=== PATIENT | female | born 1955 | race African-American/Black ===

== ENCOUNTER 2018-07-31 07:11 | Observation (INO) | payer MEDICARE ==
[2018-07-30 09:35] LABS: BASOPHILS % 0.4 % (0.0-1.0); EOSINOPHILS # (AUTO) 0.2 (0.0-0.4); EOSINOPHILS % 1.8 % (0.0-6.0); HEMATOCRIT 37.8 % (34.2-44.1); HEMOGLOBIN 12.5 g/dL (12.0-16.0); LYMPHOCYTES # (AUTO) 3.3 (1.0-3.2); MEAN CORPUSCULAR HEMOGLOBIN 29.5 pg (28-32); MEAN CORPUSCULAR HGB CONC 33.1 g/dL (31-35); MEAN CORPUSCULAR VOLUME 89.2 fL (81-99); MONOCYTES # (AUTO) 0.6 (0.2-0.8); NEUTROPHILS # (AUTO) 6.2 (2.1-6.9); NEUTROPHILS % 59.5 % (38.7-80.0); PLATELET COUNT 287 x10e3/uL (140-360); RED BLOOD COUNT 4.24 x10e6/uL (3.6-5.1); RED CELL DISTRIBUTION WIDTH 12.6 % (11.7-14.4)
[~2018-07-31] VITALS: Ht 162.6 cm; Wt 97.1 kg
[~2018-07-31 07:11] MED LIST: ALBUTEROL0.63 MG/3 NEB; AMLODIPINE BESY10 MG PO; ATENOLOL50 MG PO; CLONIDINE HCL0.3 MG PO; LEVOTHYROXINE150 MCG PO; METOPROLOL SUCC25 MG PO; VASOTEC10 MG PO
[2018-07-31] MEDS ORDERED: ROPIVACAINE 246.25 MG, EPINEPHRINE HCL 1:1000 1ML 0.5 MG, CLONIDINE HCL 0.08 MG, KETORO... INJ ONE ×5 (07:30)
[2018-07-31] MEDS ORDERED: CELECOXIB 200 MG CAP ONE ×2 (08:01→08:05)
[2018-07-31] MEDS ORDERED: CEFAZOLIN SOD 2 GM/D5W 50ML 50 ML IV ONE (08:02)
[2018-07-31] MEDS ORDERED: GABAPENTIN 300 MG CAP ONE (08:02)
[2018-07-31] MEDS ORDERED: DEXAMETHASONE SOD PHOS 10 MG/1 ML VIAL ONE (08:02)
[2018-07-31] MEDS ORDERED: ALBUTEROL SULF 0.083% NEB SOLN 3 ML NEB ONE (08:11)
[2018-07-31] MEDS ORDERED: SODIUM CHLORIDE 0.9% 500ML 500 ML ONE (08:39)
[2018-07-31] MEDS ORDERED: VANCOMYCIN HCL 1,000 MG ONE (08:39)
[2018-07-31] MEDS ORDERED: TRANEXAMIC ACID 1,000 MG/10 ML ML ONE (08:40)
[2018-07-31] MEDS ORDERED: BACITRACIN 50,000 UNIT VIAL ONE (08:40)
[2018-07-31] MEDS ORDERED: PROMETHAZINE HCL (IM) 25 MG/ML VIAL INJ PRN (11:15)
[2018-07-31] MEDS ORDERED: KETOROLAC TROMETHAMINE 30 MG/ML VIAL IV PRN ×2 (11:15→16:30)
[2018-07-31] MEDS ORDERED: ONDANSETRON HCL INJ 2MG/ML 2ML 2 MG/ML VIAL IV PRN (11:15)
[2018-07-31] MEDS ORDERED: ACETAMINOPHEN 650 MG SUPP PR PRN (11:15)
[2018-07-31] MEDS ORDERED: DIPHENHYDRAMINE HCL INJ 50 MG/ML VIAL IM/IV PRN (11:15)
[2018-07-31] MEDS ORDERED: ZOLPIDEM TARTRATE 5 MG TAB PO PRN (11:15)
[2018-07-31] MEDS ORDERED: DOCUSATE SODIUM 100 MG CAP PO PRN (11:15)
[2018-07-31] MEDS ORDERED: HYDROCODONE/APAP 5MG-325MG TAB PO PRN (11:15)
[2018-07-31] MEDS ORDERED: MEPERIDINE HCL INJ 25 MG/ML VIAL ONE (11:23)
[2018-07-31] MEDS ORDERED: FENTANYL CITRATE/PF 100MCG/2 ML INJ ONE ×2 (11:56→19:35)
--- NOTE | 2018-07-31 12:18 | Diagnostic Imaging Report ---
Exam: Left knee 2 views History: Postoperative Comparison: None. Findings: See impression Impression: Post surgical changes of total left knee replacement with intact surgical hardware. No periprosthetic displaced fracture. Expected subcutaneous gas and skin patricia. Signed by: Dr. Rafy Horton M.D. on 07/31/2018 12:15 PM
--- OUTSIDE RECORDS SUMMARY | 2018-07-31 12:55 | XMS REPORT ---
Author [facility] Address Unknown Phone Unavailable Care Team Providers Care Numberer And Wirer Name Role Phone BENJAMIN NAVARRO Unavailable Unavailable Problems This patient has no known problems. Allergies, Adverse Reactions, Alerts This patient has no known allergies or adverse reactions. Medications This patient has no known medications. Results Test Description Test Time Test Comments Text Results Atomic Results Result Comments KNEE LEFT 1-2 VIEWS 2018-07-31 12:14:00 [place] [id number] Patient Name: AKANKSHA CHOW MR #: [id number] : 1955 Age/Sex: 62/F Req #: [id number] [facility] Physician: Ordered by: BENJAMIN NAVARRO MD Report #: [id number] Location: OR Room/Bed: Procedure: [id number] DX/KNEE LEFT 1-2 VIEWS Exam Date: 07/31/18 Exam Time: 1200 REPORT STATUS: Signed Exam: Left knee 2 views History: Postoperativ e Comparison: None. Findings: See impression Impression: Post surgical changes of total left knee replacement with intact surgical hardware. No periprosthetic displaced fracture. Expected subcutaneous gas and skin patricia. Signed by: Dr. Benjamin Martinez M.D. on 07/31/2018 12:15 PM Dictated By: BENJAMIN MARTINEZ MD 1215 Transcribed By: BRIAN on 07/31/18 1215 COPY TO: BENJAMIN NAVARRO MD
[2018-07-31] MEDS ORDERED: CEFAZOLIN SOD 1 GM/NS 50ML 50 ML IV SCH (14:00)
[2018-07-31 16:55] VITALS: BP 144/70
[2018-07-31] MEDS ORDERED: SEVOFLURANE INHAL SOLN 250 ML PEN BTL ONE (17:58)
[2018-07-31] MEDS ORDERED: ONDANSETRON HCL INJ 2MG/ML 2ML 2 MG/ML VIAL ONE (17:58)
[2018-07-31] MEDS ORDERED: LIDOCAINE HCL 2% LOCAL INJ 5 ML SDV VIAL INJ ONE (17:58)
[2018-07-31] MEDS ORDERED: PROPOFOL IV EMULSION 10 MG/ML 20 ML VIAL ONE (17:58)
[2018-07-31] MEDS ORDERED: DEXAMETHASONE SOD PHOS INJ 4 MG/ML VIAL ONE (17:58)
[2018-07-31] MEDS ORDERED: LIDOCAINE HCL 2% LOCAL 20 ML VIAL ONE (18:33)
[2018-07-31] MEDS ORDERED: ROPIVACAINE 0.5% 5 MG/ML 30 ML SDV ONE (18:33)
[2018-07-31] MEDS: CEFAZOLIN SOD 1 GM/NS 50ML 50 ML IV SCH (18:47)
[2018-07-31] MEDS: ACETAMINOPHEN 1000 MG/100 ML IV SCH ×2 (18:47→18:48)
[2018-07-31] MEDS: CELECOXIB 100 MG CAP PO SCH (18:47)
[2018-07-31] MEDS: ASPIRIN 325 MG TAB PO SCH (18:47)
[2018-07-31] MEDS ORDERED: MIDAZOLAM HCL 2 MG/2 ML VIAL ONE (19:35)
[2018-07-31 20:00] VITALS: BP 140/83
[2018-07-31 20:54] VITALS: BP 140/83
[2018-07-31] MEDS ORDERED: METOPROLOL SUCC50 MG PO (21:07)
[2018-07-31] MEDS ORDERED: METOPROLOL SUCCINATE 50 MG TAB XL PO SCH (21:15)
[2018-07-31] MEDS ORDERED: ENALAPRIL MALEATE 10 MG TAB PO SCH (21:15)
[2018-07-31] MEDS ORDERED: ALBUTEROL SULF 0.083% NEB SOLN 3 ML NEB NEB SCH (21:15)
[2018-07-31] MEDS: SODIUM CHLORIDE 0.9% 1000ML 1,000 ML IV SCH (21:31)
[2018-07-31] MEDS: AMLODIPINE BESYLATE 10 MG TAB PO SCH (21:50)
[2018-07-31] MEDS: CLONIDINE HCL 0.3 MG TAB PO SCH (21:50)
[2018-07-31] MEDS: HYDROCODONE/APAP 7.5MG-325MG 1 EA TAB PO PRN (21:51)
[2018-08-01] VITALS: BP 110/55
[2018-08-01] MEDS: CEFAZOLIN SOD 1 GM/NS 50ML 50 ML IV SCH ×2 (00:49→09:38)
[2018-08-01 04:00] VITALS: BP 145/67
[2018-08-01] MEDS: HYDROCODONE/APAP 7.5MG-325MG 1 EA TAB PO PRN ×2 (04:50→13:55)
[2018-08-01 05:56] LABS: HEMOGLOBIN 10.3 g/dL (12.0-16.0)
[2018-08-01] MEDS ORDERED: LEVOTHYROXINE SODIUM 100 MCG TAB PO SCH (06:00)
[2018-08-01] MEDS: ACETAMINOPHEN 1000 MG/100 ML IV SCH ×2 (07:10)
[2018-08-01] MEDS: CLONIDINE HCL 0.3 MG TAB PO SCH (07:40)
[2018-08-01 08:57] VITALS: BP 175/76
[2018-08-01] MEDS ORDERED: ATENOLOL 50 MG TAB PO SCH (09:00)
[2018-08-01] MEDS ORDERED: ENALAPRIL MALEATE 10 MG TAB PO SCH (09:00)
[2018-08-01] MEDS: CELECOXIB 100 MG CAP PO SCH (09:38)
[2018-08-01] MEDS: AMLODIPINE BESYLATE 10 MG TAB PO SCH (09:38)
[2018-08-01] MEDS: ASPIRIN 325 MG TAB PO SCH (09:38)
--- NOTE | 2018-08-01 11:13 | Consultation ---
DATE OF CONSULTATION: PRIMARY CARE PHYSICIAN: Dr. Ángel Dill. CHIEF COMPLAINT: Status post left knee replacement on July 31, 2018. HISTORY OF PRESENT ILLNESS: The patient is a pleasant 62-year-old female status post left knee replacement. The patient is otherwise stable. No chest pain, no shortness of breath. No abdominal pain. The patient is receiving physical therapy. PAST MEDICAL HISTORY: Obesity, diabetes type 2, chronic asthma stable, hypertension, diabetic neuropathy, osteoarthritis, and hypothyroidism. PAST SURGICAL HISTORY: Weight loss surgery in 2017. Left knee replacement. SOCIAL HISTORY: The patient does not smoke or use alcohol. No recreational drug use. ALLERGIES: TO MORPHINE. HOME MEDICATIONS: List reviewed. REVIEW OF SYSTEMS: Left knee appropriate pain postop. PHYSICAL EXAMINATION: VITAL SIGNS: Temperature is 98, blood pressure 145/67, pulse rate is 64, respirations 18. GENERAL: The patient is not in acute distress. She is awake. HEENT: Normocephalic, atraumatic. Anicteric. NECK: Supple grossly. PULMONARY: Clear to auscultation bilaterally. CARDIOVASCULAR: S1, S2. Regular rate and rhythm. ABDOMEN: Soft, obese. Positive bowel sounds. Nontender, nondistention. EXTREMITIES: No gross cyanosis or edema. Status post left knee replacement. NEUROLOGIC: No focal deficit. LABORATORY DATA: The hemoglobin and hematocrit are 10.3 and 32. IMPRESSION: 1. Status post left knee replacement, stable. No complication. 2. Multiple chronic baseline problems, diabetes type 2, hypertension, obesity, dyslipidemia, hypothyroidism. PLAN: Continue with postop care. Discontinue IV fluids. Resume home medication. Pain control. MD EFRAÍN Dennison/CORKY /[id number]
[2018-08-01] MEDS ORDERED: ACETAMINOPHEN 1000 MG/100 ML IV PRN (11:15)
[2018-08-01 13:28] VITALS: BP 147/65
[2018-08-01 17:07] VITALS: BP 115/69
--- NOTE | 2018-08-02 20:34 | Operative Report ---
DATE OF PROCEDURE: 07/31/2018 SURGEON: Rafy Roque MD TRANSPORTATION SUPERINTENDENT: Ravin Ballard PREOPERATIVE DIAGNOSIS: Osteoarthritis, left knee. POSTOPERATIVE DIAGNOSIS: Osteoarthritis, left knee. PROCEDURE: Left total knee arthroplasty. INDICATIONS: The patient is a 62-year-old lady, who has end-stage arthritis of her left knee. She has failed conservative management and would like to proceed with a left total knee replacement. She previously had bariatric surgery and lost a reported 140 pounds. She remains markedly deconditioned. She understands the plan of care and wishes to proceed. PROCEDURE IN DETAIL: The patient was brought to the operating room and placed under general anesthetic. She received a regional block, tranexamic acid, and prophylactic antibiotics in the holding area. Her left lower extremity was prepped and draped in a sterile manner. A preoperative time-out was performed. The extremity was exsanguinated and the tourniquet was initially inflated to 300 mmHg. An anterior approach was made to the left knee. Extensive venous bleeding was encountered. The tourniquet was deflated and the extremity was exsanguinated one more time. The tourniquet was inflated to 350 mmHg. The surgery progressed. Once again, there was extensive bleeding. I initially attempted to proceed with the surgery through the bleeding, however, the bleeding was so extensively stopped. I exsanguinated the knee one more time and inflated the tourniquet to 400 mmHg. At this time, the bleeding was significantly improved. A medial parapatellar arthrotomy was completed. Soft tissue releases were performed to bring the knee up into flexion with the patella everted. Meniscal remnants and marginal osteophytes were removed. A [employer] Persona knee system was used. An extramedullary cutting guide was used to resect the proximal tibia. The tibial base plate was a size D. The central fin punch was impacted and attention was directed towards the distal femur. An intramedullary cutting guide was used to resect the distal femur in 6 degrees of valgus and rotation referencing off a combination of landmarks including Whitesides line, the epicondylar axis, and the posterior condyles. The femoral component was a size #7. Trial reductions were performed. A 10 mm medial congruent tibial insert provided appropriate soft tissue balancing in full extension and 90 degrees of flexion. The patella was resurfaced with a 29 mm patellar button. The thickness was checked before and after and was right around 19 mm. Patellar tracking was noted to be concentric. The trial implants were removed. A 100 mL premixed pericapsular VIRGILIO injection was injected into the surrounding soft tissue. The knee was thoroughly irrigated with a shower tip pulsatile lavage. The components were cemented into place using a single mix of Palacos cement preloaded with antibiotics. Care was taken to remove all extravasated cement. The wound was further irrigated while the cement cured. The arthrotomy was carefully closed with interrupted #1 Ethibond. The knee was put through flexion and extension to ensure a secure closure. The skin was closed with subcuticular Vicryl and patricia. A sterile Aquacel bandage was applied. An Jose M wrap was applied. The patient was extubated and transported to the recovery room in stable condition. Blood loss was approximately 150 mL. All needle and sponge counts were correct. Rafy Roque MD DR/CORKY /[id number]
== END 2018-08-01 17:36 | disposition home health service (06) ==
LOC: OR 07:11 → PACU V 11:03 → MED/SURG 15:38
PROVIDERS: ADMIT Specialist; ATTEND Specialist
DX: M17.12 Unilateral primary osteoarthritis, left knee (principal); Z01.810 Encounter for preprocedural cardiovascular examination; Z01.812 Encounter for preprocedural laboratory examination; Z88.5 Allergy status to narcotic agent; E03.9 Hypothyroidism, unspecified; J45.909 Unspecified asthma, uncomplicated; I10 Essential (primary) hypertension; G62.9 Polyneuropathy, unspecified; Z98.84 Bariatric surgery status; R53.81 Other malaise; E66.9 Obesity, unspecified; Z68.36 Body mass index [BMI] 36.0-36.9, adult
CPT/HCPCS: 27447; 36415 ×2; 73560; 85014; 85018; 85025; 86850; 86900; 86920; 93005; 94640; 97116 ×2; 97161; 97530 ×2; G0378 ×2; J0131 ×2; J0171; J0690 ×3; J1100 ×2; J1885; J2001 ×2; J2175; J2250; J2405; J2704; J2795; J3370; J7030; J7040